=== PATIENT | male | born 1940 | race Caucasian/White ===

== ENCOUNTER 2021-10-28 17:25 | Emergency (ER) | payer OTHER ==
[~2021-10-28] VITALS: Ht 190.5 cm; Wt 120.7 kg
--- NOTE | 2021-10-28 17:30 | NUR ---
BIB RA [id number] FROM [facility], STAFF IN THE FACILITY CALLED SAYING THEY CAN'T TAKE OF HIS WOUND IN LEFT LEG AND BUTTOCKS PER EMS REPORT. VITALS ARE WITHIN NORMAL LIMITS, NO RESP DOSTRESS NOTED. WARM BLANKET PROVIDED FOR [facility]. AWAITING MD HOFFMANN.
[2021-10-28] MEDS ORDERED: FOLI0.4T6 PO (17:58)
[2021-10-28] MEDS ORDERED: HYDR-3980 PO (17:58)
[2021-10-28] MEDS ORDERED: TRIA15OI9 TP (17:58)
[2021-10-28] MEDS ORDERED: AMLO-212 PO (17:58)
[2021-10-28] MEDS ORDERED: VITS5OIN2 TP (17:58)
[2021-10-28] MEDS ORDERED: ATEN25TA PO (17:58)
[2021-10-28] MEDS ORDERED: DOCU-141 PO (17:58)
[2021-10-28] MEDS ORDERED: ACET-868 PO (17:58)
[2021-10-28] MEDS ORDERED: TAMS-12 PO (17:58)
[2021-10-28] MEDS ORDERED: POLY17PO4 PO (17:58)
[2021-10-28] MEDS ORDERED: PRAV20TA4 PO (17:58)
[2021-10-28] MEDS ORDERED: FURO-144 PO (17:58)
[2021-10-28] MEDS ORDERED: POTA10TA10 PO (17:58)
[2021-10-28] MEDS ORDERED: DABI150C PO (17:58)
[2021-10-28] MEDS ORDERED: FERR325T23 PO (17:58)
[2021-10-28] MEDS ORDERED: ASCO-340 PO (17:58)
[2021-10-28] MEDS ORDERED: SENN-261 PO (17:58)
--- NOTE | 2021-10-28 18:15 | NUR ---
IV ESTABLISHED L AC 20G LABS DRAWN AND COLLECTED AT BEDSIDE
[2021-10-28 18:27] LABS: BASOPHILS # (AUTO) 0.1 K/uL (0.0-0.2); BASOPHILS % (AUTO) 1.1 % (0.0-2.0); EOSINOPHILS % (AUTO) 5.1 % (0.0-6.0); HEMATOCRIT 33 % (39-51); HEMOGLOBIN 10.8 g/dL (13.5-17.5); LYMPHOCYTES # (AUTO) 0.8 K/uL (0.8-4.8); LYMPHOCYTES % (AUTO) 11.8 % (20.0-44.0); MEAN CORPUSCULAR HGB CONC 33 g/dl (31.0-36.0); MEAN CORPUSCULAR VOLUME 88 fL (80-96); MONOCYTES # (AUTO) 0.9 K/uL (0.1-1.30); MONOCYTES % (AUTO) 12.5 % (2.0-12.0); NEUTROPHILS % (AUTO) 69.5 % (43.0-81.0); PLATELET COUNT (AUTO) 340 K/uL (150-450); RED BLOOD CELL COUNT(AUTO) 3.69 MIL/uL (4.5-6.0); WHITE BLOOD COUNT (AUTO) 7.2 K/uL (4.3-11.0)
[2021-10-28 18:38] LABS: CALCIUM, SERUM 8.2 mg/dL (8.5-10.1); CREATININE 0.9 mg/dL (0.6-1.3); POTASSIUM 3.8 mmol/L (3.5-5.1)
--- NOTE | 2021-10-28 18:56 | NUR ---
COVID TEST COLLECTED AND SENT
--- NOTE | 2021-10-28 19:01 | NUR ---
[facility] AND [facility] FOR THE PT. NOW AWAITING A CALL BACK FOR [facility]AN TO SPEAK TO DR. HOWELL
--- NOTE | 2021-10-28 19:44 | NUR ---
TRANSFER INFO PT ACCEPTED AT [facility] UNDER DR. ALMANZA / [facility] ETA [id number] NUMBER FOR REPORT:
--- NOTE | 2021-10-28 21:33 | NUR ---
REPORT GIVEN TO MIRACLE DAO FROM [facility] FOR KEITH
[2021-10-28] MEDS ORDERED: ACETAMINOPHEN 325 MG TABLET ONE (22:12)
[2021-10-28] MEDS ORDERED: ACETAMINOPHEN 325 MG TABLET PO ONE (22:30)
--- NOTE | 2021-10-28 22:36 | NUR ---
REPORT GIVEN TP EMT FROM [facility] FOR PT TO TRANSFER TO PT [facility]
[2021-10-29 00:17] VITALS: BP 123/71
== END 2021-10-28 23:35 | disposition short-term general hospital (02) ==
LOC: ER 17:26
DX: L89.309 Pressure ulcer of unspecified buttock, unspecified stage (principal); L89.620 Pressure ulcer of left heel, unstageable; I10 Essential (primary) hypertension; N40.0 Benign prostatic hyperplasia without lower urinary tract symptoms; Z79.899 Other long term (current) drug therapy; Z20.822 Contact with and (suspected) exposure to COVID-19
CPT/HCPCS: 36415; 80048; 85025; 87426; 99285; C9803